=== PATIENT | female | born 1970 | race Caucasian/White ===

== ENCOUNTER 2017-04-27 05:18 | Emergency (ER) | payer OTHER ==
[2017-04-27] MEDS ORDERED: MAG HYDROX/AL HYDROX/SIMETH 30 ML UDC PO STA ×2 (05:49→06:06)
[2017-04-27] MEDS ORDERED: LIDOCAINE VISCOUS 2% 15 ML UDC MM STA ×2 (05:49→06:05)
--- NOTE | 2017-04-27 05:53 | ED Physician Documentation ---
PD HPI ABD PAIN - Stated complaint Stated Complaint: ABDOMINAL PAIN - Chief complaint Chief Complaint: Abd Pain - History obtained from History obtained from: Patient, Family - History of Present Illness Timing - onset: Enter time (1100), Yesterday Timing - duration: Hours Timing - details: Gradual onset, Still present Quality: Sharp, Pain Location: Epigastric Improved by: Eating Worsened by: Breathing, Palpation Associated symptoms: Nausea. No: Fever, Vomiting Similar symptoms before: No diagnosis Recently seen: Not recently seen - Additional information Additional information: 46-year-old female is developed a burning sensation in her epigastrium yesterday morning at about 11 AM. She did have some relief of this after eating lunch but the pain has come back and has persisted and worsened. She took a single Tums sometime in the day. She does not usually take medications for her stomach has and has not had ulcer previously. She states this does remind her of one previous time when she drank a very strong drink and had the burning sensation in her epigastrium. She had alcohol 4 days ago. She does not take Aleve but she does occasionally take ibuprofen but has not taken any recently. Review of Systems Constitutional: denies: Fever, Chills Eyes: denies: Decreased vision Ears: denies: Ear pain Nose: denies: Congestion Throat: denies: Dental pain / toothache Cardiac: denies: Palpitations Respiratory: denies: Dyspnea, Cough GI: reports: Abdominal Pain, Nausea. denies: Vomiting : denies: Dysuria, Frequency PD PAST MEDICAL HISTORY - Past Medical History Past Medical History: No - Past Surgical History Past Surgical History: Yes General: Appendectomy - Present Medications Home Medications: Ambulatory Orders Medication Instructions Recorded Confirmed Sucralfate [Carafate] 1 gm PO ACHS #300 ml 04/27/17 - Allergies Allergies/Adverse Reactions: Allergies Allergy/AdvReac Type Severity Reaction Status Date / Time morphine Allergy Itching Verified 04/27/17 05:27 - Social History Does the pt smoke?: No Smoking Status: Never smoker Does the pt drink ETOH?: Yes Does the pt have substance abuse?: No - Immunizations Immunizations are current?: Yes - POLST Patient has POLST: No PD ED PE NORMAL - Vitals Vital signs reviewed: Yes (hypertensive ) - General General: No acute distress, Well developed/nourished - HEENT HEENT: Atraumatic, PERRL - Cardiac Cardiac: RRR, No murmur - Respiratory Respiratory: No respiratory distress, Clear bilaterally - Abdomen Abdomen: Soft, Other (epigastric tenderness reproduces the patient's symptoms. ) - Derm Derm: Normal color, Warm and dry, No rash - Extremities Extremities: No deformity, No edema - Neuro Neuro: Alert and oriented X 3, No motor deficit, No sensory deficit, Normal speech - Psych Psych: Normal mood, Normal affect Results - Vitals Vitals: Vital Signs - 24 hr 04/27/17 04/27/17 04/27/17 05:20 06:10 06:36 Temperature 36.8 C Heart Rate 70 59 L 56 L Respiratory 12 12 14 Rate Blood Pressure 153/85 H 137/91 H 133/78 H O2 Saturation 100 99 98 Oxygen O2 Source Room air PD MEDICAL DECISION MAKING - ED course Complexity details: reviewed results, re-evaluated patient, considered differential, d/w patient, d/w family ED course: 46 y/o previously well female with epigastric burning and pain has pain reproduced with palpation and does not have RUQ pain to palpation. She is administered a GI cocktail with Some relief of her pain and the pain again returns. She is administered Carafate along with a second GI cocktail and Protonix. With this she has complete resolution of her pain feels much improved. She does recall of food that she ate yesterday a candy called [place] which she has not had previously and she believes this may be the etiology of her symptoms. Departure - Departure Disposition: 01 Home, Self Care Clinical Impression: Gastritis Qualifiers: Gastritis type: unspecified gastritis Chronicity: acute Gastritis bleeding: without bleeding Qualified Code(s): K29.00 - Acute gastritis without bleeding Condition: Stable Instructions: ED PUD Vs Gastritis Follow-Up: Shaquille Moran MD [Primary Care Provider] - Prescriptions: Sucralfate [Carafate] 1 gm PO ACHS #300 ml Comments: Today it appears you have gastritis or irritation to your stomach lining probably related to something you have eaten. Avoid this food in the future and take the Carafate for the next week and take an agent to reduce the acid in her stomach like Pepcid AC or Nexium.
[2017-04-27] MEDS ORDERED: LIDOCAINE VISCOUS 2% 15 ML UDC MM ONE ×2 (05:55→06:13)
[2017-04-27] MEDS ORDERED: MAG HYDROX/AL HYDROX/SIMETH 30 ML UDC ONE ×2 (05:55→06:14)
[2017-04-27] MEDS ORDERED: SUCRALFATE 1 GM/10 ML UDC PO STA (06:05)
[2017-04-27] MEDS ORDERED: PANTOPRAZOLE 40 MG TABLET PO STA (06:06)
[2017-04-27] MEDS ORDERED: SUCRALFATE 1 GM/10 ML UDC ONE (06:13)
[2017-04-27] MEDS ORDERED: PANTOPRAZOLE 40 MG TABLET ONE (06:13)
[2017-04-27 06:37] VITALS: BP 133/78
== END 2017-04-27 06:46 | disposition home or self-care (01) ==
LOC: ED 05:18
DX: K29.00 Acute gastritis without bleeding (principal)
CPT/HCPCS: 99283; A9270

== ENCOUNTER 2017-06-20 13:37 | Outpatient (CLI) | payer OTHER ==
--- NOTE | 2017-06-21 15:34 | DEXA Report ---
DEXA SCAN: 06/20/2017 CLINICAL INDICATION: Premature menopause. TECHNIQUE: Dual energy x-ray absorptiometry (DXA) was performed on a [employer] system. Regions measured are the AP spine, femoral neck, and, if needed, forearm. COMPARISON: None. In accordance with the International Society for Clinical Densitometry (ISCD) guidelines, data from previous exams may be reanalyzed using current recommendations and techniques. This is done to allow a more accurate basis for comparison with the current study. FINDINGS Lumbar Spine Data As Follows: REGION BMD (g/cm/cm) T-SCORE Z-SCORE L1 0.766 -3.0 -3.2 L2 0.815 -3.2 -3.4 L3 0.858 -2.8 -3.0 L4 0.786 -3.4 -3.6 TOTAL 0.807 -3.1 -3.3 NOTE: All evaluable vertebrae are used for classification. HIP Data As Follows: REGION BMD (g/cm/cm) T-SCORE Z-SCORE Neck 0.771 -1.9 -1.5 TOTAL 0.729 -2.2 -2.1 NOTE: The femoral neck or total proximal femur, whichever is lowest, is used for classification. IMPRESSION: THE WHO CLASSIFICATION BASED ON THE INTERNATIONAL REFERENCE STANDARD IS OSTEOPOROSIS. FRACTURE RISK: HIGH. RECOMMENDATION: Patients with diagnosis of osteoporosis or osteopenia should have regular bone mineral density assessment. For those eligible for Medicare, routine testing is allowed once every 2 years. Testing frequency can be increased for patients who have rapidly progressing disease or for those who are receiving medical therapy to restore bone mass. COMMENT: World Health Organization (WHO) definitions for osteoporosis and osteopenia: NORMAL BMD: T-score at -1.0 or higher, fracture risk is low. OSTEOPENIA BMD: T-score between -1.0 and -2.5, fracture risk is increased. OSTEOPOROSIS BMD: T-score at -2.5 or lower, fracture risk high. National Osteoporosis Foundation recommends: 1. Obtain adequate dietary calcium (at least 1200 mg per day) and vitamin D (400 -800 international units per day). 2. Participate, as appropriate, in regular weightbearing and muscle- strengthening exercise. 3. Avoid tobacco use and reduce alcohol and caffeine intake. 4. For more detailed information see the website at www.NOF.org. MTDD
== END 2017-06-20 13:38 | disposition home or self-care (01) ==
LOC: DI 13:37
DX: M81.0 Age-related osteoporosis without current pathological fracture (principal); E28.319 Asymptomatic premature menopause
CPT/HCPCS: 77080